=== PATIENT | female | born 1955 | race Caucasian/White ===

== ENCOUNTER 2017-11-06 05:50 | Day surgery (SDC) | payer OTHER ==
[2017-11-06] MEDS ORDERED: NABUMETONE500 MG PO (08:24)
[2017-11-06] MEDS ORDERED: PERCOCET 5-3251 EACH PO (08:24)
== END 2017-11-06 13:45 | disposition home or self-care (01) ==
LOC: CIR.AMB 05:50
DX: M23.321 Other meniscus derangements, posterior horn of medial meniscus, right knee (principal); M94.261 Chondromalacia, right knee; M65.861 Other synovitis and tenosynovitis, right lower leg; M13.861 Other specified arthritis, right knee